=== PATIENT | male | born 1950 | race Caucasian/White ===

== ENCOUNTER 2024-03-22 09:37 | Emergency (ER) | payer MEDICARE, MEDICAID ==
[~2024-03-22] VITALS: Ht 165.1 cm; Wt 65.0 kg
[2024-03-22 09:39] VITALS: TEMP 96.8
[2024-03-22] MEDS ORDERED: ACET650T61 PO (09:47)
[2024-03-22 11:00] VITALS: BP 147/68
[2024-03-22 11:37] VITALS: O2SAT 98
[2024-03-22] MEDS ORDERED: CEPH500C PO (11:50)
== END 2024-03-22 11:54 | disposition home or self-care (01) ==
LOC: M ED 09:37
DX: T24.212A Burn of second degree of left thigh, initial encounter (principal); L03.116 Cellulitis of left lower limb; Z79.899 Other long term (current) drug therapy